=== PATIENT | male | born 1975 | race Caucasian/White ===

== ENCOUNTER 2016-09-28 14:09 | Emergency (ER) | payer OTHER ==
[2016-05-23 12:27] VITALS: BP 102/75
[~2016-09-28 14:09] MED LIST: ALBU18HF IH; ESCITALOPRAM OX20 MG PO; FLUT1DIS3 IH; GUAI-107 PO; IPRA3AMP NEB; PRED-220 PO; TIOT18CA IH
--- NOTE | 2016-09-28 14:29 | ED.ADGEN ---
Past History Past Medical History: COPD, Hypertension Past Surgical History: No Surgical History Alcohol Use: None Drug Use: None Adult General Chief Complaint Chief Complaint Shortness of breath HPI HPI Patient is a 40 year old male who presents with breath. He states this feels like his COPD exacerbation from a few months ago. He states 2 days ago started felt short of breath and increased his nebulizer to every 4 hours and is not helping. He states he's been having a nonproductive cough, he denies any chest pain. He denies productive cough. He states been compliant with his inhalers, however he is still smoking 30s down to half a pack per day. Review of Systems Review of Systems Constitutional: Denies fever or chills [] Eyes: Denies change in visual acuity, redness, or eye pain [] HENT: Denies nasal congestion or sore throat [] Respiratory: Positive for cough and shortness of breath. Cardiovascular: No additional information not addressed in HPI [] GI: Denies abdominal pain, nausea, vomiting, bloody stools or diarrhea [] : Denies dysuria or hematuria [] Musculoskeletal: Denies back pain or joint pain [] Integument: Denies rash or skin lesions [] Neurologic: Denies headache, focal weakness or sensory changes [] Endocrine: Denies polyuria or polydipsia [] Current Medications Current Medications Current Medications Medications (Trade) Dose Ordered Sig/Leticia Start Time Stop Time Status Last Admin Dose Admin Albuterol/ Ipratropium (Duoneb) 3 ml 1X ONCE 09/28/16 16:45 09/28/16 16:46 UNV Azithromycin (Zithromax) 500 mg 1X ONCE 09/28/16 15:00 09/28/16 15:01 DC 09/28/16 15:00 500 MG Methylprednisolone Sodium Succinate (SOLU-Medrol 125MG VIAL) 125 mg 1X ONCE 09/28/16 15:00 09/28/16 15:01 DC 09/28/16 15:00 125 MG Allergies Allergies Allergies Coded Allergies Type Severity Reaction Last Updated Verified No Known Drug Allergies 12/24/13 No Physical Exam Physical Exam Constitutional: Well developed, well nourished, no acute distress, non-toxic appearance. [] HENT: Normocephalic, atraumatic, bilateral external ears normal, oropharynx moist, no oral exudates, nose normal. [] Eyes: PERRLA, EOMI, conjunctiva normal, no discharge. [] Neck: Normal range of motion, no tenderness, supple, no stridor. [] Cardiovascular:Heart rate regular rhythm, no murmur [] Lungs & Thorax: Wheezing bilaterally, decreased breath sounds in the bases Abdomen: Bowel sounds normal, soft, no tenderness, no masses, no pulsatile masses. [] Skin: Warm, dry, no erythema, no rash. [] Back: No tenderness, no CVA tenderness. [] Extremities: No tenderness, no cyanosis, no clubbing, ROM intact, no edema. [] Neurologic: Alert and oriented X 3, normal motor function, normal sensory function, no focal deficits noted. [] Psychologic: Affect normal, judgement normal, mood normal. [] Current Patient Data Vital Signs Vital Signs Date Time Temp Pulse Resp B/P (MAP) Pulse Ox O2 Delivery O2 Flow Rate FiO2 09/28/16 14:42 98 Nasal Cannula 2.0 Lab Results Laboratory Tests Test 09/28/16 14:48 White Blood Count 8.7 x10^3/uL (4.0-11.0) Red Blood Count 5.32 x10^6/uL (4.30-5.70) Hemoglobin 16.5 g/dL (13.0-17.5) Hematocrit 48.2 % (39.0-53.0) Mean Corpuscular Volume 91 fL (79-100) Mean Corpuscular Hemoglobin 31 pg (25-35) Mean Corpuscular Hemoglobin Concent 34 g/dL (31-37) Red Cell Distribution Width 12.8 % (11.5-14.5) Platelet Count 246 x10^3/uL (140-400) Neutrophils (%) (Auto) 56 % (31-73) Lymphocytes (%) (Auto) 25 % (24-48) Monocytes (%) (Auto) 8 % (0-9) Eosinophils (%) (Auto) 11 % (0-3) H Basophils (%) (Auto) 1 % (0-3) Neutrophils # (Auto) 4.8 x10^3uL (1.8-7.7) Lymphocytes # (Auto) 2.2 x10^3/uL (1.0-4.8) Monocytes # (Auto) 0.7 x10^3/uL (0.0-1.1) Eosinophils # (Auto) 0.9 x10^3/uL (0.0-0.7) H Basophils # (Auto) 0.1 x10^3/uL (0.0-0.2) Sodium Level 140 mmol/L (136-145) Potassium Level 4.8 mmol/L (3.5-5.1) Chloride Level 105 mmol/L (98-107) Carbon Dioxide Level 31 mmol/L (21-32) Anion Gap 4 (6-14) L Blood Urea Nitrogen 20 mg/dL (8-26) Creatinine 0.8 mg/dL (0.7-1.3) Estimated GFR (Cockcroft-Gault) 106.0 Glucose Level 86 mg/dL (70-99) Calcium Level 9.0 mg/dL (8.5-10.1) Magnesium Level 2.0 mg/dL (1.8-2.4) Total Bilirubin 0.5 mg/dL (0.2-1.0) Direct Bilirubin 0.1 mg/dL (0.0-0.2) Aspartate Amino Transferase (AST) 19 U/L (15-37) Alanine Aminotransferase (ALT) 25 U/L (16-63) Alkaline Phosphatase 72 U/L (46-116) Creatine Kinase 160 U/L (39-308) Creatine Kinase MB (Mass) 4.6 ng/mL (0.0-3.6) H Creatine Kinase MB Relative Index 2.9 % (0-4) Troponin I Quantitative < 0.017 ng/mL (0-0.055) KA-Btd-N-Type Natriuretic Peptide 131 pg/mL (0-124) H Total Protein 6.9 g/dL (6.4-8.2) Albumin 4.1 g/dL (3.4-5.0) EKG EKG EKG shows sinus rhythm with rate of [address] elevations or T-wave inversions, normal axis, QTC 440 ms, as interpreted by me. Radiology/Procedures Radiology/Procedures [address] [address] IMAGING REPORT Signed PATIENT: MARILYNN JONES ACCOUNT: [id number] : 1975 LOCATION: ER AGE: 40 SEX: M EXAM STATUS: REG ER ORD. PHYSICIAN: PATRICIA AREVALO MD REASON: soa PROCEDURE: CHEST PA & LATERAL PA and lateral chest. History: Short of breath, history of lung disease PA and lateral views were taken of the chest. There is marked hyperexpansion and changes of chronic obstructive pulmonary disease. There are no acute infiltrates. There is no effusion. The heart is normal in size. Impression: 1. Hyperexpansion and COPD. 2. No acute infiltrates. DICTATED AND SIGNED BY: ANA WATKINS MD DATE: 09/28/16 1601 CC: PATRICIA AREVALO MD; JESSICA WEBBER MD ~ Course & Med Decision Making Course & Med Decision Making Pertinent Labs and Imaging studies reviewed. (See chart for details) Essentially negative, EKG, labs also negative. He received sign Medrol, azithromycin, 2 DuoNeb nebs and feels substantially improved. He denies any chest pain or shortness of breath now. He is being discharged home with a Z-Tarun and 5 days of prednisone 50 mg by mouth daily. Return precautions given, he is instructed to stop smoking. He is agreeable to the plan and being discharged in stable condition this time. Final Impression Final Impression COPD exacerbation Problems: Dragon Disclaimer Dragon Disclaimer This electronic medical record was generated, in whole or in part, using a voice recognition dictation system. PATRICIA AREVALO MD Sep 28, 2016 14:29
[2016-09-28] MEDS ORDERED: IPRATRPIUM/ALBUTEROL 0.5/2.5MG 3 ML NEBU. ONE (14:36)
--- NOTE | 2016-09-28 14:53 | EKG ---
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
[2016-09-28] MEDS ORDERED: AZITHROMYCIN 250 MG TABLET. PO ONE (15:00)
[2016-09-28] MEDS ORDERED: methylPREDNISolone SOD SUCC PF 125 MG/2 ML VIAL. IV ONE (15:00)
[2016-09-28] MEDS ORDERED: IPRATRPIUM/ALBUTEROL 0.5/2.5MG 3 ML NEBU. NEB ONE ×2 (15:00→16:45)
[2016-09-28 15:07] LABS: BASO # 0.1 x10^3/uL (0.0-0.2); BASO % 1 % (0-3); EOS # 0.9 x10^3/uL (0.0-0.7); EOS % 11 % (0-3); HEMATOCRIT 48.2 % (39.0-53.0); HEMOGLOBIN 16.5 g/dL (13.0-17.5); LYMPH # 2.2 x10^3/uL (1.0-4.8); LYMPH % 25 % (24-48); MEAN CORPUSCULAR HEMOGLOBIN 31 pg (25-35); MEAN CORPUSCULAR HGB CONC 34 g/dL (31-37); MEAN CORPUSCULAR VOLUME 91 fL (79-100); MONO # 0.7 x10^3/uL (0.0-1.1); MONO % 8 % (0-9); NEUT # 4.8 x10^3uL (1.8-7.7); NEUT % 56 % (31-73); PLATELET COUNT 246 x10^3/uL (140-400); RED BLOOD COUNT 5.32 x10^6/uL (4.30-5.70); RED CELL DISTRIBUTION WIDTH 12.8 % (11.5-14.5); WHITE BLOOD COUNT 8.7 x10^3/uL (4.0-11.0)
[2016-09-28 15:27] LABS: ALBUMIN 4.1 g/dL (3.4-5.0); CREATININE 0.8 mg/dL (0.7-1.3); DIRECT BILIRUBIN 0.1 mg/dL (0.0-0.2); POTASSIUM 4.8 mmol/L (3.5-5.1); TOTAL BILIRUBIN 0.5 mg/dL (0.2-1.0); TOTAL PROTEIN 6.9 g/dL (6.4-8.2)
--- NOTE | 2016-09-28 16:05 | RAD ---
PA and lateral chest. History: Short of breath, history of lung disease PA and lateral views were taken of the chest. There is marked hyperexpansion and changes of chronic obstructive pulmonary disease. There are no acute infiltrates. There is no effusion. The heart is normal in size. Impression: 1. Hyperexpansion and COPD. 2. No acute infiltrates.
== END 2016-09-28 16:40 | disposition home or self-care (01) ==
LOC: ER 14:09
DX: J44.1 Chronic obstructive pulmonary disease with (acute) exacerbation (principal); I10 Essential (primary) hypertension; F17.210 Nicotine dependence, cigarettes, uncomplicated
CPT/HCPCS: 36415; 71020; 80048; 80076; 82553; 83735; 83880; 84484; 85027; 93005; 94640; 96374; 99285; J0456; J2930; J7620

== ENCOUNTER 2016-10-20 18:43 | Emergency (ER) | payer OTHER ==
[~2016-10-20] VITALS: Ht 177.8 cm; Wt 68.7 kg
[2016-10-20] MEDS ORDERED: IPRATRPIUM/ALBUTEROL 0.5/2.5MG 3 ML NEBU. ONE (18:51)
[2016-10-20] MEDS ORDERED: IPRATRPIUM/ALBUTEROL 0.5/2.5MG 3 ML NEBU. NEB ONE (19:00)
[2016-10-20] MEDS ORDERED: PRED-220 PO (19:31)
--- NOTE | 2016-10-20 19:31 | PHYS DOC ---
Past History Past Medical History: COPD, Hypertension Past Surgical History: No Surgical History Smoking: Cigarettes Alcohol Use: None Drug Use: None Adult General Chief Complaint Chief Complaint: SHORTNESS OF BREATH HPI HPI Patient is a 41 year old MALE who presents with exacerbation of COPD. He states that today his breathing has become more difficult. He has oxygen to use at home "as needed" and did use it for a bit. He did use his nebulizer several times. He has had no productive cough. No fever. He was diagnosed with COPD in may 2016 he states. He was here September 28 for an exacerbation. Did well on the prednisone but now is having problems again. He states "I always get worse when it rains." No chest pain. Review of Systems Review of Systems Constitutional: Denies fever or chills Eyes: Denies change in visual acuity, redness, or eye pain HENT: Denies nasal congestion or sore throat Respiratory: see HPI Cardiovascular: No chest pain GI: Denies abdominal pain, nausea, vomiting, bloody stools or diarrhea : Denies dysuria or hematuria Musculoskeletal: Denies back pain or joint pain Integument: Denies rash or skin lesions Neurologic: Denies headache, focal weakness or sensory changes Current Medications Current Medications Current Medications Medications (Trade) Dose Ordered Sig/Leticia Start Time Stop Time Status Last Admin Dose Admin Albuterol/ Ipratropium (Duoneb) 3 ml STK-MED ONCE 10/20/16 18:51 10/20/16 18:52 DC Allergies Allergies Allergies Coded Allergies Type Severity Reaction Last Updated Verified No Known Drug Allergies 12/24/13 No Physical Exam Physical Exam Constitutional: Well developed, well nourished, no acute distress, non-toxic appearance. HENT: Normocephalic, atraumatic, bilateral external ears normal, oropharynx moist, no oral exudates, nose normal. Eyes: PERRLA, EOMI, conjunctiva normal, no discharge. Neck: Normal range of motion, no tenderness, supple, no stridor. Cardiovascular:Heart rate regular rhythm, no murmur Lungs & Thorax: Diminished breath sounds; low air flow. No active wheezing. No rales Abdomen: Bowel sounds normal, soft, no tenderness, no masses, no pulsatile masses. Skin: Warm, dry, no erythema, no rash. Back: No tenderness, no CVA tenderness. Extremities: No tenderness, no cyanosis, no clubbing, ROM intact, no edema. Neurologic: Alert and oriented X 3, normal motor function, normal sensory function, no focal deficits noted. Psychologic: Affect normal, judgement normal, mood normal. Current Patient Data Vital Signs Vital Signs Date Time Temp Pulse Resp B/P (MAP) Pulse Ox O2 Delivery O2 Flow Rate FiO2 10/20/16 18:56 92 Nasal Cannula 2.0 10/20/16 18:43 97.7 120 20 EKG EKG EKG interpreted by myself at 1911 PM: Sinus tachycardia, rate 114; Right atrial enlargement. RBBB. No STEMI. Radiology/Procedures Radiology/Procedures CXR interpreted by myself at 1905 PM shows flattened lung sandoval; no acute infiltrate; increased aeration. normal mediastinum and cardiac silhouette Course & Med Decision Making Course & Med Decision Making Evaluated patient upon arrival. Prednisone 60 po; duoneb. Will place on longer prednisone taper. Needs pulmonary follow up. Dragon Disclaimer Dragon Disclaimer This chart was dictated in whole or in part using Voice Recognition software in a busy, high-work load, and often noisy Emergency Department environment. It may contain unintended and wholly unrecognized errors or omissions. Departure Departure: Impression: Primary Impression: COPD with exacerbation Disposition: 01 HOME, SELF-CARE Condition: GOOD Referrals: BJORN TORRES APRN (PCP) Patient Instructions: Chronic Obstructive Pulmonary Disease Exacerbation Scripts Prednisone (PREDNISONE) 10 Mg Tablet 10 MG PO UD for PREDNISONE TAPER, #39 TAB 0 Refills Take 3 tablets by mouth twice a day for 3 days, then take 2 tablets by mouth twice a day for 3 days, then take 1 tablet by mouth twice a day for 3 days, then take 1 tablet by mouth daily x 3 days, then stop. Prov: ERLINDA CARBALLO MD 10/20/16 ERLINDA CARBALLO MD Oct 20, 2016 19:31
[2016-10-20 19:41] VITALS: BP 103/79
[2016-10-20] MEDS ORDERED: predniSONE 20 MG TABLET PO ONE (19:45)
[2016-10-20] MEDS ORDERED: IPRA3AMP NEB (22:27)
--- NOTE | 2016-10-21 06:24 | EKG ---
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
--- NOTE | 2016-10-21 08:20 | RAD ---
Indication wheezing and shortness of air. Frontal and lateral views of the chest were obtained and are compared to an examination 09/28/2016. Marked hyperexpansion is noted similar to the previous exam. The heart, pulmonary vessels and mediastinum appear normal. The lungs are clear of acute infiltrates. There is no pleural fluid or pneumothorax. A slight pectus deformity is noted. IMPRESSION: Chronic changes. No acute finding seen in the chest or significant change.
== END 2016-10-20 19:41 | disposition home or self-care (01) ==
LOC: ER 18:43
DX: J44.1 Chronic obstructive pulmonary disease with (acute) exacerbation (principal); I10 Essential (primary) hypertension; F17.210 Nicotine dependence, cigarettes, uncomplicated
CPT/HCPCS: 71020; 93005; 94640; 99284; J7512; J7620

== ENCOUNTER 2016-10-20 22:07 | Emergency (ER) | payer OTHER ==
[2016-10-20 22:14] VITALS: BP 140/69
[2016-10-20] MEDS ORDERED: IPRATRPIUM/ALBUTEROL 0.5/2.5MG 3 ML NEBU. ONE (22:17)
[2016-10-20] MEDS ORDERED: IPRA3AMP NEB (22:27)
--- NOTE | 2016-10-20 22:27 | PHYS DOC ---
Past History Past Medical History: COPD, Hypertension Past Surgical History: No Surgical History Smoking: Cigarettes Alcohol Use: None Drug Use: None Adult General Chief Complaint Chief Complaint: SHORTNESS OF BREATH HPI HPI Patient is a 41 year old male who presents with return of his shortness of air. He was seen earlier by myself. He has COPD and received treatment; prednisone po and EKG and CXR. He was improved at discharge. He was instructed to wear his oxygen (he has home O2 prn) continuously tonight and continue with nebulizer q 4 hours (he does TID normally). He did not do either. He states he is better upon arrival here. Review of Systems Review of Systems ROS with no change from a few hours ago Current Medications Current Medications Current Medications Medications (Trade) Dose Ordered Sig/Leticia Start Time Stop Time Status Last Admin Dose Admin Albuterol/ Ipratropium (Duoneb) 3 ml STK-MED ONCE 10/20/16 22:17 10/20/16 22:18 DC Allergies Allergies Allergies Coded Allergies Type Severity Reaction Last Updated Verified No Known Drug Allergies 12/24/13 No Physical Exam Physical Exam Constitutional: Well developed, well nourished, no acute distress, non-toxic appearance. Cardiovascular:Heart rate regular rhythm, no murmur Lungs & Thorax: Bilateral breath sounds equal. Diminished breath sounds at bases. No wheezing. Neurologic: Alert and oriented X 3, normal motor function, normal sensory function, no focal deficits noted. Current Patient Data Vital Signs saturation 91-92% on room air Course & Med Decision Making Course & Med Decision Making Had a long discussion with the patient and family member. He is not in any respiratory distress at this time. Ambulated here without difficulty. No conversational dyspnea. Reviewed the plan for the next 24 hours with continuous oxygen and nebulizer q 4 hours. He has an inhaler as well. I asked if he needed any refills on either and he stated no. He has his prednisone Rx to fill for tomorrow as well. We discussed that he needs pulmonary evaluation and he is to call [facility] outpatient pulmonary clinic in the am and make his appointment. Dragon Disclaimer Dragon Disclaimer This chart was dictated in whole or in part using Voice Recognition software in a busy, high-work load, and often noisy Emergency Department environment. It may contain unintended and wholly unrecognized errors or omissions. Departure Departure: Impression: Primary Impression: COPD with exacerbation Disposition: HOME, SELF-CARE Condition: STABLE Referrals: BJORN TORRES APRN (PCP) Additional Instructions: call [facility]; DR DESTINY ZAPATA AT IN THE AM TO SET UP AN APPT. Keep your oxygen all for the next 24 hours! Use your nebulizer every 4 hours for the next several days. YOU WILL NOT GET BETTER LONG YOU ARE SMOKING Scripts Ipratropium/Albuterol Sulfate (DUONEB 0.5-3(2.5) MG/3 ML) 3 Ml Ampul.neb 3 ML NEB QID for 30 Days, #120 EACH Prov: ERLINDA CARBALLO MD 10/20/16 ERLINDA CARBALLO MD Oct 20, 2016 22:27
[2016-10-20] MEDS ORDERED: IPRATRPIUM/ALBUTEROL 0.5/2.5MG 3 ML NEBU. NEB ONE (22:30)
== END 2016-10-20 22:35 | disposition home or self-care (01) ==
LOC: ER 22:07
DX: J44.1 Chronic obstructive pulmonary disease with (acute) exacerbation (principal); I10 Essential (primary) hypertension; F17.210 Nicotine dependence, cigarettes, uncomplicated
CPT/HCPCS: 94640; 99283; J7620

== ENCOUNTER → 2016-12-22 | Outpatient (CLI) | payer OTHER ==
[~2016-12-22] MED LIST changes: -GUAI-107 PO; +GUAI-108 PO
--- NOTE | 2016-12-22 09:35 | RAD ---
Exam performed: 2 views of the chest. Indication: CHEST CONGESTION W SOA X 3 DAYS, STIFFNESS Date of Service:12/22/2016 2:00 AM . Comparison : Single view chest from 10/20/16. Findings: PA and lateral radiographs of the chest reveal a normal cardiomediastinal contour. The lungs are hyperinflated, however clear. No pleural fluid is seen. The visualized osseous structures are unremarkable. Impression: No acute cardiopulmonary process seen.
== END | disposition home or self-care (01) ==
LOC: DXRADRC 08:47
PROVIDERS: ATTEND Physician Assistant Medical
DX: R09.89 Other specified symptoms and signs involving the circulatory and respiratory systems (principal); R06.02 Shortness of breath
CPT/HCPCS: 71020